=== PATIENT | male | born 1985 | race Asian ===

== ENCOUNTER 2023-12-23 16:09 | Emergency (ER) | payer SELFPAY ==
[~2023-12-23] VITALS: Ht 185.4 cm; Wt 99.7 kg
[2023-12-23 16:15] VITALS: O2SAT 99
[2023-12-23] MEDS: IBUPROFEN 400MG TABLET PO ONE (19:41)
[2023-12-23] MEDS ORDERED: BENZ100C86 MT (20:04)
[2023-12-23] MEDS ORDERED: IBUP-2028 MT (20:04)
[2023-12-23 20:17] VITALS: BP 133/91; PULSE 73; RESP 16; TEMP 98.4
== END 2023-12-23 20:18 | disposition home or self-care (01) ==
LOC: ER 16:09
DX: B34.9 Viral infection, unspecified (principal); R05.9 Cough, unspecified; Z20.822 Contact with and (suspected) exposure to COVID-19
CPT/HCPCS: 71045; 87426; 99284